=== PATIENT | female | born 1980 | race Two or more races ===

== ENCOUNTER 2021-11-08 11:08 | Emergency (ER) | payer MEDICAID, OTHER ==
[~2021-11-08] VITALS: Ht 157.5 cm; Wt 102.0 kg
[2021-11-08 15:18] VITALS: BP 124/62
[2021-11-08] MEDS ORDERED: PRED20TA2 PO (16:17)
[2021-11-08] MEDS ORDERED: AMOX-277 PO (16:17)
== END 2021-11-08 16:37 | disposition home or self-care (01) ==
LOC: ER 11:08
DX: J20.9 Acute bronchitis, unspecified (principal); Z20.822 Contact with and (suspected) exposure to COVID-19
CPT/HCPCS: 36415; 71045